=== PATIENT | male | born 1950 | race Caucasian/White ===

== ENCOUNTER 2021-08-31 22:28 | Emergency (ER) | payer MEDICARE ==
[~2021-08-31] VITALS: Ht 177.8 cm; Wt 90.7 kg
== END 2021-08-31 23:00 | disposition home or self-care (01) ==
LOC: ER 22:34
DX: R33.9 Retention of urine, unspecified (principal); R31.9 Hematuria, unspecified; E11.9 Type 2 diabetes mellitus without complications; J44.9 Chronic obstructive pulmonary disease, unspecified; I25.10 Atherosclerotic heart disease of native coronary artery without angina pectoris; D64.9 Anemia, unspecified; Z86.73 Personal history of transient ischemic attack (TIA), and cerebral infarction without residual deficits
CPT/HCPCS: 51700; 87086; 87186; 99283